=== PATIENT | female | born 1970 | race Caucasian/White ===

== ENCOUNTER 2021-12-01 12:32 | Outpatient (RCR) | payer OTHER, SELFPAY ==
--- NOTE | 2021-12-01 13:30 | PTOPEVAL ---
PHYSICAL THERAPY EVALUATION AND PLAN OF CARE 12-01-21 Thank you for referring Soniya Soto to [facility], for the diagnosis of vestibular rehab/ positional vertigo. Soniya is scheduled to be seen for therapy? 0-2 x/week for 4 weeks, depending upon her vestibular symptoms. Please review, sign, date and return this plan of care JARON. I agree with and certify that the following plan of care is medically necessary. Referring Physician Date Attending Provider: Denis Prince MD *PT Outpatient Evaluation Document 12/01/21 12:40 HIRA (Rec: 12/01/21 13:30 HIRA [id number]) Past Medical History Source of Past Medical History Patient Neurological History Hx Migraine Yes: chronic, occur 10-12/ month, ease with meds Cardiovascular History Hx Cardiac Disorders No Significant History Respiratory History sinus infections Hx COVID-19 Yes: May 2020--hospitalized & pneumonia with it, about 3 wk illness Gastrointestinal History Hx Gastroesophageal Reflux Disease Yes Genitourinary History Hx Genitourinary Disorders No Significant History Musculoskeletal History Hx Arthritis Yes: neck--to see neurologist for increase neck pain Hx Other Musculoskeletal Disorders Yes: neck pain- arthritis in neck; Hematological History Hx Hematological Disorders No Significant History Endocrine History Hx Endocrine Disorders No Significant History HEENT History Hx HEENT Disorders No Significant History Integumentary History Hx Skin Disorders No Significant History Reproductive History Hx Reproductive Disorders No Significant History Psychosocial History Hx Anxiety Yes Evaluation Information Problem Diagnosis positional vertigo Onset Sep 2021 Previous Treatments Previous Treatments For This Problem no previous treatment for vestibular Prior Level of Function Activity Level (Last 3 Months) Occupation not working outside of home Activity of Daily Living Ability Independent Indoor/Home Mobility Independent Community Mobility Independent Stairs Ability Independent Functional Cognition (Planning, Shopping Independent , Taking Medications) Cooking Yes Cleaning Yes Laundry Yes Shopping Yes Driving Yes Comments Additional Prior Level of Function can do everything, just have Comments to sit and wait for dizziness to pass; cautious with
--- NOTE | 2022-09-24 13:28 | PCPTNOTE ---
PHYSICAL THERAPY DISCHARGE 09-24-22 LATE ENTRY Attending Provider: Denis Prince, Patient:Soniya Soto Date of :1970 Patient has not returned for any further treatments since 12/01/2021, therefore she will be discharged at this time. She had the PT evaluation only, for the diagnosis of positional vertigo. Thank you for referring this patient to [facility].
== END 2022-02-16 09:36 | disposition home or self-care (01) ==
LOC: ANHPT 12:32
PROVIDERS: PCP Internal Medicine; Visit Provider Internal Medicine
DX: H81.10 Benign paroxysmal vertigo, unspecified ear (principal)
CPT/HCPCS: 97161

== ENCOUNTER 2022-10-25 12:32 | Emergency (ER) | payer OTHER, SELFPAY ==
[2022-10-25 12:43] VITALS: BP 136/87; PULSE 94; RESP 16; TEMP 37.2; O2SAT 99
--- NOTE | 2022-10-25 13:06 | ED.URI ---
HPI - URI/Sore Throat General Chief Complaint: Upper Respiratory Infection Stated Complaint: sorre throat Time Seen by Provider: 10/25/22 13:24 Source: patient and RN notes reviewed Mode of arrival: ambulatory Limitations: no limitations History of Present Illness HPI Narrative: 51-year-old female presents with concern for sore throat, headache, general malaise, cough. Reports exposure to influenza. Reports she noticed white spots tonsils. She reports she has chronic migraines, she has taken all of her migraine remedies relief of her headache MD elicited complaint: sore throat and other (Headache) Related Data Home Medications Medication Instructions Recorded Confirmed amitriptyline 50 mg tablet 50 mg PO DAILY 11/18/19 10/25/22 erenumab-aooe 70 mg/mL 70 mg subcut MONTHLY 11/18/19 10/25/22 subcutaneous auto-injector (Aimovig Autoinjector) topiramate 25 mg tablet 25 mg PO DAILY 11/18/19 10/25/22 ketorolac 10 mg tablet 10 mg PO Q6H PRN migrained headache 10/25/22 10/25/22 rizatriptan 10 mg disintegrating 10 mg PO Q2H PRN migraine headache 10/25/22 10/25/22 tablet zolpidem 10 mg tablet 5 mg PO QHS PRN sleep 10/25/22 10/25/22 Allergies Allergy/AdvReac Type Severity Reaction Status Date / Time No Known Allergies Allergy Verified 10/25/22 13:00 Review of Systems Review of Systems: CONSTITUTIONAL: Reports malaise EYES: Denies visual changes, redness, or discharge. ENT: Reports rhinorrhea, congestion, sore throat. Denies sinus pain, otalgia CARDIOVASCULAR: Denies chest pain, palpitations, or edema. RESPIRATORY: Reports cough. Denies dyspnea. GASTROINTESTINAL: Denies abdominal pain, nausea, vomiting, diarrhea SKIN: Denies rash or itching. MUSCULOSKELETAL: Reports myalgia. NEUROLOGIC: Reports persistent headache. All systems reviewed & are unremarkable except as noted in HPI and below PMFSH Past Medical History Medical History (Updated 10/25/22 @ 13:53 by Judi Do NP) Anxiety Insomnia Obesity Social History Social History Gender identity (if verbalized by the patient): Female Comments At time of signature, agree with nursing past medical, surgical, social and family history. There is no relevant family history pertinent to the presenting complaint Exam Narrative: GENERAL: Nontoxic-appearing and in no acute distress. HEAD: Normocephalic EYES: PERRLA, conjunctivae clear ENT: Nares clear, clear discharge. Mucous membranes moist. TM pearly brown with dull light reflex bilaterally; no tragal tenderness. Oropharynx erythematous without lesions. Tonsils not enlarged with scant exudate, no drooling, slightly hoarse voice, no trismus, uvula midline. NECK: Supple. No lymphadenopathy CHEST: Clear to auscultation, breath sounds equal. No wheezing, rhonchi, rales, or stridor. No respiratory distress, speaks in full sentences. HEART: Regular rate and rhythm. No murmur heard. SKIN: Warm, dry, no rash. NEURO: Alert and oriented x3. PSYCH: Normal mood and affect Course Course Emergency Course: Patient is aware of diagnosis, understands and agrees to treatment plan. Anticipatory guidance given. Patient agrees to follow-up as directed and is aware of reasons to seek care at the emergency department. Portions of this record may have been created with voice recognition software Level of Care: Express Care Visit Reevaluation(s) Reevaluation #1: Patient reports not much improvement in her headache after ketorolac injection Date: 10/25/22 Vital Signs Vital signs: Vital Signs Temperature 99.0 F 10/25/22 12:43 Pulse Rate 94 10/25/22 12:43 Respiratory Rate 16 10/25/22 12:43 Blood Pressure 136/87 10/25/22 12:43 Pulse Oximetry 99 10/25/22 12:43 Oxygen Delivery Room Air 10/25/22 12:43 Temperature 99.0 F 10/25/22 12:43 Pulse Rate 94 10/25/22 12:43 Respiratory Rate 16 10/25/22 12:43 Blood Pressure 136/87 10/25/22 12:43 Pulse Oximetry 99 10/25/22 12:43 Oxygen Delive
[2022-10-25] MEDS: KETOROLAC (*BKC) 60 MG/2 ML VIAL IM (13:44)
== END 2022-10-25 14:14 | disposition home or self-care (01) ==
PROVIDERS: Emergency Provider Nurse Practitioner
DX: J11.1 Influenza due to unidentified influenza virus with other respiratory manifestations (principal); R51.9 Headache, unspecified; E66.9 Obesity, unspecified; Z68.25 Body mass index [BMI] 25.0-25.9, adult
CPT/HCPCS: 87081; 87804; 87880; 96372; 99213; G0463; J1885

== ENCOUNTER 2023-05-11 01:01 | Day surgery (SDC) | payer BC, SELFPAY ==
[2023-05-07 13:26] VITALS: BMI 25.7
[2023-05-11 07:17] VITALS: BP 127/85; PULSE 91; RESP 20; TEMP 36.4; O2SAT 100; BMI 27.1
--- NOTE | 2023-05-11 07:17 | P.HP_ITS ---
History of Present Illness History of Present Illness Consent: Risks, benefits, and alternatives have been discussed and questions answered. Patient agrees to proceed with procedure. Chief complaint: neoplasm screening Narrative: Soniya Soto is a 52 year old female Presents for screening colonoscopy. Patient's current weight appetite and bowel movements are normal. Patient denies abdominal pain. She has had no bleeding. Family history is noncontributory. Review of Systems Review of Systems: Review of systems noncontributory. [facility]LY [facility] Past Medical History Medical History Anxiety Insomnia Obesity Social History Social History (Updated 03/31/23 @ 09:37 by Angelica Briseno MA) Smoking status: Never smoker Alcohol intake: never Substance use: never Substance use type: does not use Lack of Transportation: No Current Housing: I Have Housing Concerned About Future Housing: No Difficulty Paying Gas/Electric Bills: No Difficulty Paying for Meds: No Currently Unemployed: No Education: High School Diploma/GED Difficulty w/ Childcare or Family Care: No Living arrangements: alone Occupation/Education: occupation Gender identity (if verbalized by the patient): Female Sexual Orientation (if Verbalized by the Patient): Straight or Heterosexual Spiritual care concerns: No Meds Home Medications and Allergies Home Medications Medication Instructions Recorded Confirmed Type amitriptyline 50 mg tablet 50 mg PO DAILY 11/18/19 05/07/23 History erenumab-aooe 70 mg/mL 70 mg subcut MONTHLY 11/18/19 05/07/23 History subcutaneous auto-injector (Aimovig Autoinjector) topiramate 25 mg tablet 25 mg PO DAILY 11/18/19 05/07/23 History ketorolac 10 mg tablet 10 mg PO Q6H PRN migrained headache 10/25/22 05/07/23 History rizatriptan 10 mg disintegrating 10 mg PO Q2H PRN migraine headache 10/25/22 05/07/23 History tablet albuterol sulfate 90 mcg/actuation 1 - 2 inh inhalation Q4H PRN 11/24/22 03/31/23 Rx aerosol inhaler shortness of breath or wheezing #8.5 grams pantoprazole 40 mg tablet,delayed 40 mg PO QHS #90 tabs 11/27/22 05/07/23 Rx release zolpidem 10 mg tablet 10 mg PO QHS PRN insomnia #30 tabs 03/10/23 05/07/23 Rx sodium,potassium,mag sulfates 17.5 See Rx Instructions PO .COMPLEX 03/31/23 05/07/23 Rx gram-3.13 gram-1.6 gram oral soln #354 mL (Suprep Bowel Prep Kit) Allergies Allergy/AdvReac Type Severity Reaction Status Date / Time No Known Allergies Allergy Verified 05/11/23 07:15 Exam Narrative: Physical exam reveals patient to be alert. Vital signs stable. HEENT exam is unremarkable. Patient is anicteric. Lungs are clear to auscultation and percussion. Heart is without murmur or extra sounds. Abdomen bowel sounds are present soft nontender with no organomegaly. Digital external rectal exam is normal. Assessment and Plan Assessment and plan (1) Encounter for screening colonoscopy: Code(s): Z12.11 - Encounter for screening for malignant neoplasm of colon Status: Acute Assessment and Plan: Patient presents today for screening colonoscopy. She appears to be at average risk for colon polyps. Further recommendations may be g
[2023-05-11] MEDS: LACTATED RINGERS 1,000 ML 150 ML IV CONT (07:28)
--- NOTE | 2023-05-11 08:09 | WPDANESEPPF ---
Anes - Initial Pre Proc Eval Procedure: Operation Date: 05/11/23 08:30 Proposed Procedures p Screening Colonoscopy - Yariel Barton MD Date/Time: 05/11/23 08:09 Surgeon: Yariel Barton MD Pre Op Diagnosis: neoplasm screening Patient Data Age: 52 Gender: F Height: 1.68 m Weight: 76.2 kg Last Vital Signs Temp 97.5 F L 05/11/23 07:17 Pulse 91 05/11/23 07:17 Resp 20 05/11/23 07:17 BP 127/85 05/11/23 07:17 Pulse Ox 100 05/11/23 07:17 O2 Del Method Room Air 05/11/23 07:17 Allergies Allergy/AdvReac Type Severity Reaction Status Date / Time No Known Allergies Allergy Verified 05/11/23 07:15 Home Medications Medication Instructions Recorded Confirmed Type amitriptyline 50 mg tablet 50 mg PO DAILY 11/18/19 05/07/23 History erenumab-aooe 70 mg/mL 70 mg subcut MONTHLY 11/18/19 05/07/23 History subcutaneous auto-injector (Aimovig Autoinjector) topiramate 25 mg tablet 25 mg PO DAILY 11/18/19 05/07/23 History ketorolac 10 mg tablet 10 mg PO Q6H PRN migrained headache 10/25/22 05/07/23 History rizatriptan 10 mg disintegrating 10 mg PO Q2H PRN migraine headache 10/25/22 05/07/23 History tablet albuterol sulfate 90 mcg/actuation 1 - 2 inh inhalation Q4H PRN 11/24/22 05/11/23 Rx aerosol inhaler shortness of breath or wheezing #8.5 grams pantoprazole 40 mg tablet,delayed 40 mg PO QHS #90 tabs 11/27/22 05/07/23 Rx release zolpidem 10 mg tablet 10 mg PO QHS PRN insomnia #30 tabs 03/10/23 05/07/23 Rx Patient hx anesthesia problems: none Family hx anesthesia problems: none Results Review: All pre-operative results and documents have been reviewed as part of the pre-operative evaluation. FORMERLY [facility] Past Medical History Medical History Anxiety Insomnia Obesity Social History Social History (Updated 03/31/23 @ 09:37 by Angelica Briseno MA) Smoking status: Never smoker Alcohol intake: never Substance use: never Substance use type: does not use Lack of Transportation: No Current Housing: I Have Housing Concerned About Future Housing: No Difficulty Paying Gas/Electric Bills: No Difficulty Paying for Meds: No Currently Unemployed: No Education: High School Diploma/GED Difficulty w/ Childcare or Family Care: No Living arrangements: alone Occupation/Education: occupation Gender identity (if verbalized by the patient): Female Sexual Orientation (if Verbalized by the Patient): Straight or Heterosexual Spiritual care concerns: No Anes - Eval Final PreProcedure Day of Procedure 05/11/23 08:09 Patient weight: normal Heart: regular rate and rhythm Lungs: clear to auscultation Airway: Mallampati scale class II Neurological: alert and oriented Last oral intake: >/= 8 hours ASA classification: II Emergent: no Anesthetic plan: proceed Anesthesia type and monitoring: general GIVS and standard monitoring Results Review: All pre-operative results and documents have been reviewed as part of the pre-operative evaluation. Informed Consent: The patient's anesthetic plan and its attendant risks and benefits were discussed with the patient/family/POA. Questions were solicited and answers provided to the satisfaction of the patient/family/POA.
[2023-05-11 08:30] VITALS: BP 114/82; PULSE 81; RESP 22; O2SAT 100
[2023-05-11 08:40] VITALS: BP 120/80; PULSE 82; RESP 20; O2SAT 100
[2023-05-11 08:50] VITALS: BP 122/82; PULSE 82; RESP 20; O2SAT 100
== END 2023-05-11 09:00 | disposition home or self-care (01) ==
PROVIDERS: PCP Nurse Practitioner Family; Visit Provider Internal Medicine Gastroenterology
PROC: 0DJD8ZZ Inspection of Lower Intestinal Tract, Via Natural or Artificial Opening Endoscopic (ICD-10-PCS; CPT 45378; principal; 2023-05-11 08:30)
DX: Z12.11 Encounter for screening for malignant neoplasm of colon (principal); K64.8 Other hemorrhoids; Z79.51 Long term (current) use of inhaled steroids; G47.00 Insomnia, unspecified
CPT/HCPCS: 45378; J2704; J7120

== ENCOUNTER → 2023-06-14 16:07 | Outpatient (CLI) | payer BC, SELFPAY ==
--- NOTE | ~2023-06-14 | MM_ITS ---
EXAMINATION: MM screening lindsey BI w yesika HISTORY: Screening mammogram TECHNIQUE: Craniocaudal and mediolateral oblique 3-D tomosynthesis images were obtained and synthetic 2-D images were generated. CAD analysis was submitted and interpreted. COMPARISON: 07/08/2019 BREAST PARENCHYMAL COMPOSITION:There are scattered areas of fibroglandular density. FINDINGS: There is a 7 mm lobulated mass at the outer, posterior right breast, not clearly seen on pr ior exam. No suspicious abnormality left breast. No suspicious microcalcifications in either breast. IMPRESSION: 7 mm outer, posterior right breast mass. Although circumscribed and relatively low-density, this is i ndeterminate. Spot compression views and ultrasound are recommended for further evaluation. BI-RADS Category 0: Incomplete: Needs additional imaging evaluation. Reviewed, dictated and finalized at [facility]. IMPRESSION: 7 mm outer, posterior right breast mass. Although circumscribed and relatively low-density, this is indeterminate. Spot compression views and ultrasound are r ecommended for further evaluation. BI-RADS Category 0: Incomplete: Needs additional imaging evaluation.
== END ==
PROVIDERS: PCP Nurse Practitioner Family; Visit Provider Nurse Practitioner Family
DX: Z12.31 Encounter for screening mammogram for malignant neoplasm of breast (principal); R92.8 Other abnormal and inconclusive findings on diagnostic imaging of breast
CPT/HCPCS: 77063; 77067

== ENCOUNTER 2023-06-22 10:10 | Outpatient (CLI) | payer BC, SELFPAY ==
--- NOTE | ~2023-06-22 | MMUS_ITS ---
EXAMINATION: MM diagnostic lindsey RT w yesika, US breast RT limited HISTORY: 7 mm outer posterior right breast mass reported on 06/10/2023 screening mammogram TECHNIQUE: Additional 3-D tomosynthesis images of the right breast were performed and synthetic 2-D i mages were generated. CAD analysis was submitted and interpreted. High resolution lower outer quadran t right breast ultrasound was performed. COMPARISON: 06/10/2023 and 06/28/2019 bilateral screening mammogram examinations FINDINGS: MAMMOGRAPHIC FINDINGS: An approximately 4 x 4.5 mm low-density circumscribed mass is noted in the posterior lower outer righ t breast. ULTRASOUND: No sonographic correlate is detected in the lower outer quadrant of the right breast for the small lo w-density circumscribed approximately 4 x 4.5 mm mass. IMPRESSION: 1. Probable benign 4 x 4.4 mm circumscribed low-density mass in the posterior lower outer right breas t 2. 6 month diagnostic right mammogram and limited right breast ultrasound follow-up are recommended BI-RADS category 3, probably benign findings. Reviewed, dictated and finalized at location [facility]. IMPRESSION: 1. Probable benign 4 x 4.4 mm circumscribed low-density mass in the posterior l ower outer right breast 2. 6 month diagnostic right mammogram and limited right breast ultrasound follo w-up are recommended BI-RADS category 3, probably benign findings.
== END 2023-06-22 10:11 | disposition home or self-care (01) ==
LOC: CHSIMG 10:12
PROVIDERS: PCP Nurse Practitioner Family; Visit Provider Nurse Practitioner Family
DX: R92.8 Other abnormal and inconclusive findings on diagnostic imaging of breast (principal); N63.10 Unspecified lump in the right breast, unspecified quadrant
CPT/HCPCS: 76642; 77061; 77065; G0279

== ENCOUNTER → 2023-12-27 14:17 | Outpatient (CLI) | payer BC, SELFPAY ==
--- NOTE | ~2023-12-27 | MMUS_ITS ---
EXAMINATION: MM diagnostic lindsey RT w yesika, US breast RT limited HISTORY: Six-month follow-up for probably benign right breast mass TECHNIQUE: Craniocaudal, mediolateral, and mediolateral oblique 3-D tomosynthesis images of the right breast were performed and synthetic 2-D images were generated. CAD analysis was submitted and interp reted. High resolution limited right breast ultrasound was performed. COMPARISON: 06/22/2023, 06/14/2023, 06/28/2019 BREAST PARENCHYMAL COMPOSITION: There are scattered areas of fibroglandular density. FINDINGS: MAMMOGRAPHIC FINDINGS: There is a stable 7 mm oval round, obscured, equal density mass in the middle/posterior third of the lower-outer breast at the 8:00 location, 10 cm from the nipple. There has been no suspicious interval change. ULTRASOUND: There is an 8 mm x 4 mm oval, circumscribed, parallel, complex cystic and solid mass with no posterio r features or internal vascularity at 8:00 location, 7 cm from the nipple. IMPRESSION: 1. Stable, probably benign right breast mass. 2. Recommend 6 month follow-up bilateral diagnostic mammogram and right breast ultrasound. BI-RADS category 3, probably benign findings. Reviewed, dictated and finalized at location A. THERAPIST IMPRESSION: 1. Stable, probably benign right breast mass. 2. Recommend 6 month follow-up bilateral diagnostic mammogram and right breast ultrasound. BI-RADS category 3, probably benign findings.
== END ==
PROVIDERS: PCP Nurse Practitioner Family; Visit Provider Nurse Practitioner Family
DX: N63.10 Unspecified lump in the right breast, unspecified quadrant (principal); R92.8 Other abnormal and inconclusive findings on diagnostic imaging of breast
CPT/HCPCS: 76642; 77061; 77065; G0279

== ENCOUNTER 2024-01-14 15:29 | Outpatient (CLI) | payer BC, SELFPAY ==
--- NOTE | ~2024-01-14 | MR_ITS ---
EXAMINATION: MR knee RT wo con DATE: 01/14/2024 16:05 INDICATION: Right knee pain TECHNIQUE: Magnetic resonance imaging (MRI) of the right knee was performed without intravenous contr ast. Sequences included coronal PD-weighted FSE, coronal PD-weighted FS FSE, sagittal T2-weighted FS E, sagittal PD-weighted FS FSE and axial PD weighted fat saturated FSE. COMPARISON: None. FINDINGS: Medial compartment: Medial meniscus is normal. Small region of shallow chondral surface irregularity along the lateral ma rgin of the anterior weightbearing medial femoral condyle. Remaining articular cartilage in medial co mpartment is normal. Lateral compartment: Lateral meniscus is normal. Articular cartilage is normal. Patellofemoral compartment: Partial-thickness chondral ulceration and deep fissuring at the patellar apical ridge and lateral asp ect of the medial facet where there is some Cortical irregularity and mild subarticular edema-like signal change. Additional deep fissuring witho ut degenerative subchondral changes along the inferior aspect of the lateral patellar facet. Addition al subtle cortical irregularity and underlying a recent deep chondral fissuring at the inferior aspec t of the medial trochlea. Ligaments and tendons: Anterior and posterior cruciate ligaments are normal. The medial collateral ligament and fibular marcial ateral ligament complex are normal. Quadriceps tendon is normal. Mild enthesopathy at the proximal pa tellar tendon and overlying the anterior margin of the inferior patella. The visualized medial and la teral hamstring tendons as well as the iliotibial band are normal. Fluid: Physiologic amount of fluid in the joint space. No loose osteochondral bodies identified. Osseous/other: Siphon the previous noted mild subarticular edema-like signal change at the patella there is normal m arrow signal. No fracture or pathologic marrow replacing process. IMPRESSION: 1. 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 2. Minimal osteoarthritis in medial compartment with very small region of moderate grade chondromalac ia along the lateral margin of the anterior weightbearing medial femoral condyle. Reviewed, dictated and finalized at location A. IT REVIEW ANALYST IMPRESSION: 1. Mild patellofemoral osteoarthritis with regions of high-grade chondromalacia at the medial patellar facet and medial trochlea. 2. Minimal osteoarthritis in medial compartment with very small region of moder ate grade chondromalacia along the lateral margin of the anterior weightbearing medial femoral condyle.
== END 2024-01-14 15:30 ==
LOC: MICIMG 15:30
PROVIDERS: PCP Nurse Practitioner Family; Visit Provider Nurse Practitioner Family
DX: M17.11 Unilateral primary osteoarthritis, right knee (principal); M94.261 Chondromalacia, right knee
CPT/HCPCS: 73721

== ENCOUNTER 2024-06-26 09:27 | Outpatient (CLI) | payer BC, SELFPAY ==
--- NOTE | ~2024-06-26 | MMUS_ITS ---
EXAMINATION: MM diagnostic lindsey BI w yesika, US breast RT limited HISTORY: Follow-up right breast mass TECHNIQUE: Additional 3-D tomosynthesis images of the breasts were performed and synthetic 2-D images were generated. CAD analysis was submitted and interpreted. High resolution Limited right breast ult rasound was performed. COMPARISON: Comparison to multiple prior studies sequentially, with oldest reviewed study dated 05/2019. BREAST PARENCHYMAL COMPOSITION: Not dense: There are scattered areas of fibroglandular density. FINDINGS: MAMMOGRAPHIC FINDINGS: There are no suspicious masses, calcifications or architectural distortion in either breast to sugges t malignancy. ULTRASOUND: Limited right breast ultrasound: Antegrade o'clock, 7 cm from the nipple there is a 5 mm cyst. No juanis picious masses to suggest malignancy. IMPRESSION: 1. No evidence for malignancy in either breast. 2. Routine yearly screening mammogram and regular clinical breast examination are recommended. BI-RADS Category 2: Benign finding(s). Reviewed, dictated and finalized at location B. IMPRESSION: 1. No evidence for malignancy in either breast. 2. Routine yearly screening mammogram and regular clinical breast examination a re recommended. BI-RADS Category 2: Benign finding(s).
== END 2024-06-26 09:28 ==
PROVIDERS: PCP Nurse Practitioner Family; Visit Provider Nurse Practitioner Family
DX: R92.8 Other abnormal and inconclusive findings on diagnostic imaging of breast (principal)
CPT/HCPCS: 76642; 77062; 77066; G0279

== ENCOUNTER 2024-10-21 16:56 | Emergency (ER) | payer BC, SELFPAY ==
[2024-10-21 17:04] VITALS: BP 130/93; PULSE 92; RESP 16; TEMP 36.2; O2SAT 99
--- NOTE | 2024-10-21 17:04 | ED_ITS ---
HPI - URI/Sore Throat General Chief Complaint: Upper Respiratory Infection Stated Complaint: Sinus issue Time Seen by Provider: 10/21/24 17:09 Source: patient, RN notes reviewed and old records reviewed Mode of arrival: ambulatory Limitations: no limitations History of Present Illness HPI Narrative: Patient presents with 1 month history of sinus pain and pressure. She reports that she has been taking Claritin and Sudafed for her symptoms. Reports that she gets frequent migraines, so is unable to tell if her headaches this past month have been due to sinus pressure or her typical migraine. She denies any fever, chills, sweats. She denies any injury or trauma. She reports copious postnasal drainage causing sore throat. She has no other concerns today Related Data Home Medications Medication Instructions Recorded Confirmed erenumab-aooe 70 mg/mL 70 mg subcut MONTHLY 11/18/19 12/28/23 subcutaneous auto-injector (Aimovig Autoinjector) rizatriptan 10 mg tablet See Rx Instructions PO .COMPLEX 07/10/24 Allergies Allergy/AdvReac Type Severity Reaction Status Date / Time No Known Allergies Allergy Verified 10/21/24 17:01 Review of Systems Review of Systems: All systems reviewed & are unremarkable except as noted in HPI and below Constitutional: Constitutional: Reports no additional constitutional complaints ENT: Reports system reviewed and no additional complaints, except as documented, Reports facial pain, Reports nasal congestion, Reports nasal discharge, Reports sinus pain, Reports sinus pressure and Reports sore throat Cardiovascular: Cardiovascular: Reports no additional cardiovascular complaints Respiratory: Respiratory: Reports as per HPI and Reports no additional respiratory complaints Gastrointestinal: Gastrointestinal: Reports no additional gastrointestinal complaints Neurologic: Reports system reviewed and no additional complaints, except as documented and Reports as per HPI [facility] Past Medical History Medical History ) Anxiety Insomnia Obesity Social History Social History Smoking status: Never smoker Alcohol intake: never Substance use: never Substance use type: does not use Lack of Transportation: No Current Housing: I Have Housing Concerned About Future Housing: No Difficulty Paying Gas/Electric Bills: No Difficulty Paying for Meds: No Currently Unemployed: No Education: High School Diploma/GED Difficulty w/ Childcare or Family Care: No Living arrangements: alone Occupation/Education: occupation Gender identity (if verbalized by the patient): Female Sexual Orientation (if Verbalized by the Patient): Straight or Heterosexual Spiritual care concerns: No Comments At the time of my signature, I reviewed and agree with the nursing past medical, surgical, social, and family history. There is no relevant family history pertinent to the patient complaint. Exam Const: General: cooperative, no acute distress, alert and awake Orientation/consciousness: oriented to person, oriented to place and oriented to time HENMT: Head: normal to inspection Ears: TM abnormal with fluid behind the TM bilateral Face and sinus: sinus tenderness maxillary Throat: posterior oropharynx abnormal erythema and postnasal drainage Resp: Effort & Inspection: normal respiratory effort and able to speak in complete sentences Auscultation: clear to auscultation bilaterally, no crackles, no rales, no rhonchi and no wheezes Cardio: Palpation: normal PMI Rate: regular rate Rhythm: regular rhythm Heart sounds: S1 normal heart sound present and S2 normal heart sound present Neuro: General: oriented to person, oriented to place and oriented to time Cranial nerves: Yes CN's II-XII intact bilaterally Psych: Appearance: grossly normal Thought process: Normal thought process present Insight: Good insight present (Psych) Judgement: Good judgement present (Psych) Course Course Level of Care: Express Care Visit Vital Signs Vital signs: Reviewed MDM - URI/Sore Throat MDM Narrative Medical decision making narrative: History and exam consistent with sinusitis. Treat with prednisone burst, Augmentin. Patient is nontoxic appearing. Stable for discharge home on p.o. antibiotic therapy. Next para Discharge instructions reviewed with patient, as well as provided in writing per nursing staff. The instructions also include specific and strict return/GO TO THE ER as well as f/u information. All questions have been answered, and the patient deny any further questions with discharge and discharge plan. Some parts of this dictation were generated by voice recognition software and may contain typographical and/or grammatical inaccuracies. Differential Diagnosis Differential diagnosis: Likely upper respiratory infection, otitis media, sinusitis, viral infection, influenza and pharyngitis Medical Records Attestation: I reviewed the patient's medical records. Discharge Plan Discharge Clinical Impression: Sinusitis Qualifiers: Sinusitis location: maxillary Chronicity: acute Recurrence: not specified as recurrent Qualified Code(s): J01.00 - Acute maxillary sinusitis, unspecified Patient Disposition: Home, Self-Care Condition: Stable Instructions: Antibiotic Form, Sinusitis (ED) Additional Instructions: Take medications as prescribed. Follow with primary care provider. Emergency department for new or worse symptoms Patient Language: Wolof Prescriptions: New amoxicillin-pot clavulanate 875-125 mg tablet 1 tablet PO Q12H Qty: 20 0RF prednisone 50 mg tablet 50 mg PO DAILY Qty: 5 0RF No Action Aimovig Autoinjector 70 mg/mL auto-injector 70 mg SUBCUT MONTHLY ketorolac 10 mg tablet 10 mg PO Q6H PRN (Reason: migrained headache) Qty: 90 0RF topiramate 25 mg tablet 125 mg PO DAILY Qty: 450 0RF ondansetron 4 mg tablet,disintegrating 4 mg PO Q6H PRN (Reason: nausea and vomiting) Qty: 90 0RF albuterol sulfate 90 mcg/actuation HFA aerosol inhaler 1 - 2 inh inhalation Q4H PRN (Reason: shortness of breath or wheezing) Qty: 8.5 0RF amitriptyline 50 mg tablet 50 mg PO DAILY Qty: 90 0RF rizatriptan 10 mg tablet See Rx Instructions PO .COMPLEX Hold Instructions: Order Change Patient Comments: Neuro. Doctor orders Rx Instructions: take 1 tab at onset of headache; if no relief may repeat 1 tab after at least 2 hrs; max = 3 tabs/24 hr PO pantoprazole 40 mg tablet,delayed release (DR/EC) See Rx Instructions .ROUTE .COMPLEX Qty: 90 1RF Dose Instruction: TAKE 1 TABLET BY MOUTH EVERY DAY AT BEDTIME Rx Instructions: TAKE 1 TABLET BY MOUTH EVERY DAY AT BEDTIME zolpidem 10 mg tablet 10 mg PO QHS PRN (Reason: insomnia) Qty: 30 0RF sertraline 25 mg tablet 125 mg PO DAILY Qty: 450 0RF Follow-up/Referrals: Meghan Cheng APN-C [Primary Care Provider] - 2 Weeks Time of Disposition: 17:20
== END 2024-10-21 17:22 | disposition home or self-care (01) ==
PROVIDERS: Emergency Provider Nurse Practitioner Family; PCP Nurse Practitioner Family
DX: J01.00 Acute maxillary sinusitis, unspecified (principal); E66.9 Obesity, unspecified; Z68.24 Body mass index [BMI] 24.0-24.9, adult
CPT/HCPCS: 99213; G0463

== ENCOUNTER 2025-11-21 11:30 | Outpatient (CLI) | payer BC, SELFPAY ==
--- OUTSIDE RECORDS SUMMARY | 2025-11-21 11:47 | XMS_ITS | Clinical Summary ---
Author Organization [facility] Address Formerly [place] [address] Care Team Providers Care [employer] Registrar Name Role Phone Denis Prince MD Primary Care Provider [phone] Allergies No known active allergies Medications zolpidem 10 MG tablet Take 5 mg by mouth nightly as needed. 8 Active amitriptyline 50 MG tablet Take 50 mg by mouth every evening. 9 Active topiramate 25 MG tablet Take 125 mg by mouth every evening. 9 Active pantoprazole EC 40 MG tablet Take 40 mg by mouth every evening. 9 Active rizatriptan 10 MG tablet Take 10 mg by mouth as needed. 0 Active ketorolac 10 MG tablet Take 10 mg by mouth every 6 (six) hours as needed. 0 Active sertraline (ZOLOFT) 100 MG tablet Take 1 tablet (100 mg total) by mouth daily. Active progesterone (PROMETRIUM) 100 MG capsule Take 1 capsule (100 mg total) by mouth daily. 5 Active estradiol (ESTRACE) 1 MG tablet Take 1 tablet (1 mg total) by mouth daily. 5 Active Magnesium Oxide -Mg Supplement 500 MG Cap Take by mouth Active ondansetron (ZOFRAN-ODT) 4 MG disintegrating tablet Take 1 tablet (4 mg total) by mouth every 8 (eight) hours as needed. 4 Active AIMOVIG 140 MG/ML injection (autoinjector) Inject 1 mL (140 mg total) into the skin. 5 Active albuterol sulfate HFA 108 (90 Base) MCG/ACT inhaler INHALE 1 TO 2 PUFFS BY MOUTH EVERY 4 HOURS NEEDED FOR SHORTNESS OF BREATH OR WHEEZING 5 Active Active Problems Problem Noted Date Diagnosed Date COVID-19 virus infection 06/16/2020 Anxiety disorder 11/24/2019 Menstrual migraine with status migrainosus, not intractable 08/12/2018 Intractable chronic migraine without aura and without status migrainosus 07/19/2018 Difficulty breathing 03/30/2013 Shortness of breath 03/30/2013 Chest pain 03/30/2013 Sensation of chest tightness 03/29/2013 Social History Tobacco Use Types Packs/Day Years Used Date Smoking Tobacco: Never Smokeless Tobacco: Never Tobacco Cessation:Counseling Given: No Alcohol Use Standard Drinks/Week Comments Yes 0 (1 standard drink = 0.6 oz pur e alcohol) occasionally Comments No Sex and Gender Information Value Date Recorded Sex Assigned at Not on file Legal Sex Female 5:50 PM CDT Gender Identity Not on file Sexual Orientation Not on file Last Filed Vital Signs Vital Sign Reading Time Taken Comments Blood Pressure 99/72 03/22/2025 3:17 PM CDT Pulse 95 03/22/2025 3:17 PM CDT Temperature 36.6 C (97.9 F) 03/22/2025 3:17 PM CDT Respiratory Rate 20 03/22/2025 3:17 PM CDT Oxygen Saturation 98% 03/22/2025 3:17 PM CDT Inhaled Oxygen Concentration - - Weight 73.9 kg (163 lb) 03/22/2025 3:17 PM CDT Height 167.6 cm (5' 6) 03/22/2025 3:17 PM CDT Body Mass Index 26.31 03/22/2025 3:17 PM CDT Plan of Treatment Health Maintenance Due Date Last Done Comments Cervical Cancer Screening Pa p Smear (Age 30 to 64) Every 3 Years 1969 Colorectal Cancer Screening Colonoscopy (10 Years) 1969 Annual Physical 1972 Hepatitis C 1987 DTaP, Tdap and Td Vaccines ( 1 - Tdap) 1988 Hepatitis B Vaccines (1 of 3 - 19+ 3-dose series) 1988 Cervical Cancer Screening Pa p with HPV Testing (Age 30 to 64) Every 5 Years 1999 Cervical Cancer Screening with HPV 1999 Mammogram Screening 2009 Pneumococcal Vaccine: 50+ Ye ars (1 of 1 - PCV) 2019 Zoster Vaccines (1 of 2) 2019 PHQ-2 (Physician [place]) 11/22/2024 COVID-19 Vaccine (1 - 2024-2 6 season) 2025 Influenza Adult (#1) 2025 Hepatitis A Vaccines Aged Out No long er eligible based on patient's age to complete this topic Meningococcal B Vaccine Aged Out No l onger eligible based on patient's age to complete this topic Meningococcal Vaccine Aged Out No brian yaneth eligible based on patient's age to complete this topic RSV Immunizations Under 20 Months Aged Out No longer eligible based on patient's age to complete this topic Insurance [facility] Advance Directives * Full Code (Latest Code Status on File) Date Activated Date Inactivated Comments 06/16/2020 2:48 AM 06/16/2020 1:39 PM Care Teams [employer] Registrar Relationship Specialty Start Date End Date Denis Prince MD [address] [place] [id number] PCP - General INTERNAL MEDICINE 06/15/20
--- OUTSIDE RECORDS SUMMARY | 2025-11-21 11:47 | XMS_ITS | Clinical Summary ---
Author Organization [facility] Address [address] [place] [address] Care Team Providers Care Junior Graphic Designer Name Role Phone Meghan Cheng NP Primary Care Provider [phone] Allergies No known active allergies Medications zolpidem (AMBIEN) 10 mg tabletIndication s:Sleep-Onset Insomnia TK 1 T PO QHS PRF SLEEP [address] (PROTONIX) 40 mg EC tablet TK 1 T PO HS 0 9 Active magnesium oxide 500 mg capsule Take by mouth A ctive benzonatate (TESSALON) 100 mg capsule Take 1 capsule (100 mg total) by mouth 5 Active erenumab-aooe (Aimovig Autoinjector) 140 mg/mL auto-injector Inject 1 mL (140 mg total) under the skin every 30 (thirty) days 1 mL 11 5 Active amitriptyline (ELAVIL) 50 mg tabletIndication s:Intractable chronic migraine without aura and without status migrainosus Take 1 tablet (50 mg total) by mouth nightly 90 tablet 3 5 04/30/20 26 Active progesterone (PROMETRIUM) 100 mg capsule Take 1 capsule (100 mg total) by mouth daily Active estradioL (ESTRACE) 1 mg tablet Take 1 tablet (1 mg total) by mouth daily 5 Active ketorolac (TORADOL) 10 mg tabletIndication s:Intractable chronic migraine without aura and without status migrainosus Take 1 tablet (10 mg total) by mouth every 6 (six) hours as needed (migraine) Active sertraline (ZOLOFT) 100 mg tabletIndication s:Generalized anxiety disorder Take 1 tablet (100 mg total) by mouth daily 90 tablet 3 5 Active topiramate (TOPAMAX) 25 mg tabletIndication s:Intractable chronic migraine without aura and without status migrainosus TAKE 5 TABLETS BY MOUTH EVERY DAY 450 tablet 3 5 Active rizatriptan (MAXALT) 10 mg tabletIndication s:Migraine 1 at onset of migraine. May repeat after 2 hrs if needed. Max 3 in 24 hrs. 9 tablet 11 5 Active ondansetron (ZOFRAN) 4 mg tabletIndication s:Intractable chronic migraine without aura and without status migrainosus Take 1 tablet (4 mg total) by mouth every 8 (eight) hours as needed for nausea or vomiting 20 tablet 3 5 Active Active Problems Problem Noted Date Diagnosed Date Anxiety disorder 11/24/2019 Menstrual migraine with status migrainosus, not intractable 08/12/2018 Intractable chronic migraine without aura and without status migrainosus 07/19/2018 Difficulty breathing 03/30/2013 Shortness of breath 03/30/2013 Chest pain 03/30/2013 Sensation of chest tightness 03/29/2013 Encounters Date Type Department Care Team Description 09/10/2025 Telephone [facility] Medicine General Neurology [address] [place] [address] Ita Bartlett PA Aimovig PA from Last 3 Months Medical History Medical History Date Comments Migraine Vocal cord dysfunction Anxiety Family History Medical History Relation Name Comments Cancer Maternal Grandfather Stroke Maternal Grandmother Heart disease Mother Relation Name Status Comments Maternal Grandfather Maternal Grandmother Mother Social History Tobacco Use Types Packs/Day Years Used Date Smoking Tobacco: Never Smokeless Tobacco: Never Alcohol Use Standard Drinks/Week Comments No 0 (1 standard drink = 0.6 oz pur e alcohol) Comments No Sex and Gender Information Value Date Recorded Sex Assigned at Not on file Legal Sex Female 12:49 PM CENTER LEAD CONSULTANT Gender Identity Not on file Sexual Orientation Not on file Occupation Industry Job Start Date Job End Date denied Not on file Not on file Not on file Obstetrics History Para Term AB IAB SAB Ectopic Multiple Livin g Live Births 4 4 Date Outcome GA Total Labor Labor/2nd/3rd Weight Sex Type Anes PTL Damaris A1 A5 Name Clin Last Filed Vital Signs Vital Sign Reading Time Taken Comments Blood Pressure 126/82 05/08/2025 3:56 PM CDT Pulse 94 05/08/2025 3:56 PM CDT Temperature 36.9 C (98.4 F) 05/08/2025 3:56 PM CDT Respiratory Rate 18 01/17/2025 11:45 AM CENTER LEAD CONSULTANT Oxygen Saturation 100% 05/08/2025 3:56 PM CDT Inhaled Oxygen Concentration - - Weight 70.5 kg (155 lb 8 oz) 05/08/2025 3:56 PM CDT Height 167.1 cm (5' 5.8) 05/08/2025 3:56 PM CDT Body Mass Index 25.25 05/08/2025 3:56 PM CDT Plan of Treatment Health Maintenance Due Date Last Done Comments Cervical Cancer Screening 1969 Colon Cancer Screening-Colonoscopy 1969 Depression Screening 1969 Hepatitis C Screening 1969 DTaP/Tdap/Td Vaccine (1 - Tdap) 1980 Hepatitis B Screening 1987 Regular Well Visit/Exam 18-64 1987 Zoster Vaccine (1 of 2) 2019 Influenza Vaccine (#1) 2025 Breast Cancer Screening-Mammogram 07/11/2026 025 Pneumococcal vaccine <65 Aged Out No longer eligible based on patient's age to complete this topic Procedures Procedure Name Priority Date/Time Associated Diagnosis Comments SCREENING MAMMOGRAM BILATERAL W DERIK Schedule Routine, Read Routine (OP Routine) 07/11/2025 12:56 PM CDT Screening mammogram, encounter for from Last 3 Months or Most Recently Relevant to Health Maintenance Results * Screening Mammogram Bilateral W Derik (07/11/2025 12:56 PM CDT) Anatomical Region Laterality Modality Breast Bilateral Mammography Impressions 07/19/2025 9:23 AM CDT Bilateral No evidence of malignancy in either breast. OVERALL BI-RADS FINAL ASSESSMENT: 2 - Benign RECOMMENDATION: Recommend bilateral annual screening mammography. Narrative 07/19/2025 9:23 AM CDT EXAMINATION: Screening Mammogram Bilateral W Derik: 07/11/2025 COMPARISON: Relevant prior studies available at the time of interpretation were reviewed, including the most recent mammogram on: 06/26/2024. TECHNIQUE: Mammography was performed with 2D and 3D digital breast tomosynthesis (DBT) images. CAD was utilized. BREAST PARENCHYMAL COMPOSITION: There are scattered areas of fibroglandular density. FINDINGS: Bilateral There is no suspicious mass, calcification, or architectural distortion in either breast. us Self Screening Mammogram IMG MAMMO PROCEDURES Fi nal Result from Last 3 Months or Most Recently Relevant to Health Maintenance Insurance [employer] ACCESS CHOICE [employer] Care Teams Junior Graphic Designer Relationship Specialty Start Date End Date Meghan Cheng NP [address] [place] [id number] PCP - General Nurse Practitioner 04/24/25
[2025-11-21 13:49] LABS: Toxigenic C. Diff NEGATIVE (NEGATIVE)
== END 2025-11-21 11:31 | disposition home or self-care (01) ==
LOC: ANHLAB 11:32
PROVIDERS: PCP Nurse Practitioner Family; Visit Provider Nurse Practitioner Family
DX: K52.9 Noninfective gastroenteritis and colitis, unspecified (principal)
CPT/HCPCS: 87493